=== PATIENT | male | born 1960 | race Two or more races ===

== ENCOUNTER 2024-01-04 19:27 | Emergency (ER) | payer OTHER ==
[~2024-01-04] VITALS: Ht 157.5 cm; Wt 72.6 kg
[2024-01-04] MEDS ORDERED: METFORMIN HCL500 M3 (19:51)
[2024-01-04] MEDS ORDERED: METHYLPREDNISOLONE SOD SUCC 125 MG VIAL IM STA (20:13)
== END 2024-01-04 20:26 | disposition home or self-care (01) ==
LOC: ER 19:28
DX: R53.81 Other malaise (principal); M79.643 Pain in unspecified hand; M79.673 Pain in unspecified foot; Z91.013 Allergy to seafood